=== PATIENT | female | born 1980 | race Caucasian/White ===

== ENCOUNTER 2020-06-25 12:25 | Emergency (ER) | payer OTHER ==
[2020-06-25 12:33] VITALS: BP 124/86; PULSE 74; TEMP 98.1; BMI 23.3
[2020-06-25] MEDS ORDERED: ONDANSETRON 4 MG/2 ML VIAL IVPUSH ONE (13:00)
[2020-06-25] MEDS ORDERED: FAMOTIDINE 20 MG/50 ML IVPB 20 MG/50 ML MG IVPB ONE ×2 (13:00→13:14)
[2020-06-25] MEDS ORDERED: ACETAMINOPHEN 1000 MG/100 ML VIAL (NON FORMULARY) IVPB ONE (13:00)
[2020-06-25] MEDS ORDERED: SODIUM CHLORIDE 1,000 ML IV STA (13:00)
[2020-06-25] MEDS ORDERED: ACETAMINOPHEN INJECTION 100 ML IVPB ONE (13:14)
[2020-06-25] MEDS ORDERED: ONDANSETRON 4 MG/2 ML VIAL ONE (13:15)
[2020-06-25 13:30] LABS: BASO % 1.3 % (0-2.0); EOS % 1.7 % (0-4.5); HEMATOCRIT 40.3 % (32.4-45.2); HEMOGLOBIN 13.4 GM/dl (10.7-15.3); LYMPH % 31.3 % (8-40); MCH 31.7 pg (25.7-33.7); MCHC 33.2 g/dl (32.0-36.0); MEAN CELL VOLUME 95.6 fl (80-96); MEAN PLT VOLUME 8.5 fl (7.5-11.1); MONO % 6.7 % (3.8-10.2); PLATELET COUNT 247 K/MM3 (134-434); RBC 4.22 M/mm3 (3.60-5.2); RDW 12.6 % (11.6-15.6)
[2020-06-25 13:40] LABS: ALBUMIN 4.2 g/dl (3.4-5.0); BILIRUBIN,TOTAL 0.6 mg/dl (0.2-1); CALCIUM 8.7 mg/dl (8.5-10); CREATININE 0.7 mg/dl (0.55-1.3); TOT PROT 7.3 g/dl (6.4-8.2)
[2020-06-25 13:50] LABS: EPITHELIAL CELLS MANY /hpf
== END 2020-06-25 16:30 | disposition home or self-care (01) ==
LOC: FER 12:25
PROC: 3E033NZ Introduction of Analgesics, Hypnotics, Sedatives into Peripheral Vein, Percutaneous Approach (ICD-10-PCS; principal; 2020-06-25)
PROC: 3E033GC Introduction of Other Therapeutic Substance into Peripheral Vein, Percutaneous Approach (ICD-10-PCS; 2020-06-25)
PROC: 3E0337Z Introduction of Electrolytic and Water Balance Substance into Peripheral Vein, Percutaneous Approach (ICD-10-PCS; 2020-06-25)
DX: R11.2 Nausea with vomiting, unspecified (principal)
CPT/HCPCS: 36415; 76705-TC; 80053; 81003; 81015; 83690; 85025; 99285-25; J0131

== ENCOUNTER 2020-07-19 10:35 | Emergency (ER) | payer OTHER ==
[2020-07-19 10:56] VITALS: BP 99/58; PULSE 82; TEMP 98; BMI 23.2
[2020-07-19 12:44] LABS: HIV INTERPRETATION NEGATIVE (NEGATIVE)
== END 2020-07-19 11:16 | disposition home or self-care (01) ==
LOC: JER 10:35
DX: Z77.21 Contact with and (suspected) exposure to potentially hazardous body fluids (principal)
CPT/HCPCS: 36415; 86317; 86704; 86803; 87340; 87389; 99283-25